=== PATIENT | female | born 1995 ===

== ENCOUNTER 2025-05-13 08:53 | Emergency (ER) | payer BC ==
[~2025-05-13] VITALS: Ht 157.5 cm; Wt 72.0 kg
[2025-05-13 08:55] VITALS: TEMP 98
--- NOTE | 2025-05-13 10:14 | Physician Documentation ---
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 She landed directly on her face. She reports a laceration to her nose from her glasses, as well as pain and swelling to her nose. She reports having a generalized headache. She reports a history of frequent headaches, normally takes Tylenol. She did not have any medications at home. Unknown last tetanus shot. She denies any other significant associated injuries. No eye injuries, neck pain or injury, or significant extremity injury. Tetanus within 5 Years?: No Medication Reconciliation Allergies: Coded Allergies: No Known Allergies (Unverified , 05/13/25) Review of Systems Gastrointestinal: Denies: nausea, vomiting Neurological: Reports: headache; Denies: dizziness Physical Exam Vital Signs: Temperature: 98.0, Source: Temporal, Heart Rate: 109, Respiratory Rate: 16, BP: 155/75, Pulse Oximetry: 98, Weight: 71.950 Physical Exam General: This is a pleasant and overall well-appearing young woman with an obvious injury to her nose HEENT: The patient is generalized swelling to her nose with a jagged superficial laceration over the left nasal bridge measuring about 1 cm. General diffuse swelling to the nose but no deviation. No septal deviation or septal hematoma, no bleeding from the nose. Mild generalized tenderness on palpation of the bones of the face without focal bony point tenderness or step-off. No intraoral injuries. No cervical spine tenderness Heart: Mild tachycardic, appears regular Lungs: normal work of breathing, normal oxygen saturation on room air Extremities: Warm and well-perfused. No significant deformity or pain Neuro: Alert and oriented, no focal deficits Psychiatric: Calm and cooperative with exam Procedures Laceration Repair : Anesthesia: none Prep: irrigated by nurse Repaired: skin Wound Repaired With: Dermabond Tolerated Procedure Well?: yes, no complications Progress Results/Orders Results/Orders Orders - MITCHELL CHAUDHRY MD General Nursing Order (05/13/25 ) Completed Orders - MITCHELL HCAUDHRY MD Tetanus/Pertuss/Diph Acell/Pf (Boostrix (05/13/25 10:15) Ibuprofen Tablet (Motrin Tablet) (05/13/25 10:15) Acetaminophen 325mg Tablet (Tylenol Tabl (05/13/25 10:15) * Cold Therapy* (05/13/25 10:12) Vital Signs 05/13/25 05/13/25 08:55 11:49 Temp 98.0 Pulse 109 68 Resp 16 16 B/P (MAP) 155/75 112/70 Pulse Ox 98 98 Medical Decision Making Additional Comment The patient presents with a fall and facial injury. On exam she has a superficial laceration as well as findings consistent with a likely nasal fracture. No findings to suggest a dangerous intracranial process including a doubt intracranial hemorrhage. I did offer to perform a head CT, but the patient declined, after I discussed the risks and benefits of this. She was given a tetanus shot. She was given oral medications for her headache, she decl ined IM Toradol. Her wound was cleaned and repaired with skin glue. She likely does have a nasal fracture. No other evidence of complication, facial fracture, or other dangerous process. She was given home care instructions and return precautions. Departure Time of Disposition: 11:30 Disposition: 01 HOME / SELF CARE / HOMELESS Impression: Primary Impression: Nasal fracture Additional Impression: Laceration of nose Condition: Stable Discharge Instructions: Facial Laceration, [id number], Nasal Fracture Referrals: NO PRIMARY CARE PROVIDER (PCP) Education Educated: Patient Educated regarding: diagnosis, need for follow up Signature Scribe Signature: dalila Attestation: MITCHELL Crawford MD May 13, 2025 10:14
[2025-05-13] MEDS: ibuprofen tablet 400 MG TABLET PO ONE (10:28)
[2025-05-13] MEDS: TETanus/Pertussis (Acell)/Diphther VAC/PF (Tdap-Adult) 0.5ml syringe IMVAC ONE (10:29)
[2025-05-13 11:49] VITALS: BP 112/70; PULSE 68; RESP 16; O2SAT 98
== END 2025-05-13 11:51 | disposition home or self-care (01) ==
LOC: ER 08:54
DX: S02.2XXA Fracture of nasal bones, initial encounter for closed fracture (principal); S01.21XA Laceration without foreign body of nose, initial encounter; W10.9XXA Fall (on) (from) unspecified stairs and steps, initial encounter; Y93.02 Activity, running; Y92.89 Other specified places as the place of occurrence of the external cause; Y99.8 Other external cause status
CPT/HCPCS: 12011; 90471; 90715; 99284